=== PATIENT | male | born 1995 | race Caucasian/White ===

== ENCOUNTER 2017-06-16 02:05 | Emergency (ER) | payer BC, MEDICAID ==
[~2017-06-16] VITALS: Ht 165.1 cm; Wt 95.5 kg
[2017-06-16] MEDS ORDERED: BACITRACIN ZINC OINT UDPKT TOP ONE (07:45)
[2017-06-16] MEDS ORDERED: LIDOCAINE HCL 1% 20ML VIAL (Pyxis) INJ MC ONE (07:45)
[2017-06-16] MEDS ORDERED: TETANUS, DIPHTHERIA, PERTUSSIS VAC/PF 0.5ML (>7YR OLD) IM ONE (07:45)
[2017-06-16 09:29] VITALS: BP 124/55
== END 2017-06-16 09:30 | disposition home or self-care (01) ==
LOC: ER 03:50
DX: S51.011A Laceration without foreign body of right elbow, initial encounter (principal); S09.90XA Unspecified injury of head, initial encounter; W10.8XXA Fall (on) (from) other stairs and steps, initial encounter; Y93.89 Activity, other specified; Y92.89 Other specified places as the place of occurrence of the external cause; Z23 Encounter for immunization; Z72.0 Tobacco use
CPT/HCPCS: 12001; 73080; 90471; 90715; 99284; J3490; Z7610